=== PATIENT | female | born 1950 | race Two or more races ===

== ENCOUNTER 2021-09-22 23:21 | Emergency (ER) | payer OTHER ==
[~2021-09-22] VITALS: Ht 165.1 cm; Wt 83.9 kg
[2021-09-22] MEDS ORDERED: COZAAR25 MG PO (23:36)
[2021-09-22] MEDS ORDERED: ECOTRIN81 MG PO (23:36)
== END 2021-09-23 14:25 | disposition home or self-care (01) ==
LOC: ER 23:21
DX: K80.10 Calculus of gallbladder with chronic cholecystitis without obstruction (principal); Z20.822 Contact with and (suspected) exposure to COVID-19

== ENCOUNTER 2023-01-07 06:22 | Emergency (ER) | payer OTHER ==
[~2023-01-07] VITALS: Ht 165.1 cm; Wt 79.4 kg
[~2023-01-07 06:22] MED LIST: COZAAR25 MG PO; ECOTRIN81 MG PO
== END 2023-01-07 12:12 | disposition home or self-care (01) ==
LOC: ER 06:22
DX: R42 Dizziness and giddiness (principal); Z88.8 Allergy status to other drugs, medicaments and biological substances; I10 Essential (primary) hypertension